=== PATIENT | female | born 1965 | race African-American/Black ===

== ENCOUNTER 2024-01-13 14:31 | Inpatient (IN) | payer OTHER ==
[2024-01-13 15:46] VITALS: BMI 30.9
[2024-01-13] MEDS ORDERED: IBUPROFEN 400 MG TABLET (FP) PO PRN (17:41)
[2024-01-13] MEDS ORDERED: LOPERAMIDE HCL 2 MG CAPSULE PO PRN (17:41)
[2024-01-13] MEDS ORDERED: BENZONATATE 200 MG CAPSULE PO PRN (17:41)
[2024-01-13] MEDS ORDERED: guaiFENesin 600 MG TABLET.ER (FP) PO PRN (17:41)
[2024-01-13] MEDS ORDERED: POLYETHYLENE GLYCOL (HEALTHYLAX) 3350 17 GM PACKET PO PRN (17:41)
[2024-01-13] MEDS ORDERED: P-EPHED 60MG/TRIPROLIDI 2.5MG TABLET PO PRN (17:41)
[2024-01-13] MEDS ORDERED: ACETAMINOPHEN 325 MG TABLET (FP) PO PRN (17:41)
[2024-01-13] MEDS ORDERED: BENZOCAINE/MENTHOL (CHLORASEPTIC ) LOZENGE MM PRN (17:41)
[2024-01-13] MEDS: SULFAMETHOXAZOLE/TRIMETHOPRIM 800MG/160MG D.S. TABLET PO SCH (21:52)
[2024-01-13] MEDS ORDERED: TUBERCULIN PPD 5 TU/0.1ML VIAL ID ONE (21:52)
[2024-01-13] MEDS: TUBERCULIN PPD 5 TU/0.1ML SYRINGE (IN PATIENT USE ONLY) ID ONE (22:02)
[2024-01-13] MEDS: THIAMINE HCL 100 MG TABLET (FP) PO SCH (22:06)
[2024-01-13] MEDS: MELATONIN 5 MG TABLETS PO SCH (22:06)
[2024-01-14] MEDS ORDERED: ALBUTEROL SO4 HFA INHALER IH PRN ×2 (08:13→10:42)
[2024-01-14] MEDS: PRENATAL VITAMINS W/ FOLIC ACID TABLET (FP) PO SCH (11:06)
[2024-01-14] MEDS: BACITRACIN 0.9 GM PACKET TP SCH (11:06)
[2024-01-14 12:09] LABS: EPI CELLS >36 /uL (0-25.1); HYALINE CASTS 2 /uL (0-3.1); PH,URINE 5.5 (5.0-8.0); URINE APPEARANCE TURBID; URINE BACTERIA 1217 /uL (0-1359); URINE BILIRUBIN NEGATIVE (NEGATIVE); URINE COLOR YELLOW; URINE GLUCOSE (UA) NEGATIVE (NEGATIVE); URINE KETONE NEGATIVE (NEGATIVE); URINE LEUK ESTERASE 3+ (NEGATIVE); URINE NITRITE NEGATIVE (NEGATIVE); URINE PROTEIN NEGATIVE (NEGATIVE); URINE RBC 14 /uL (0-23.9); URINE UROBILINOGEN 0.2 mg/dL (0.2-1.0); URINE WBC 1603 /uL (0-25.8)
[2024-01-15 11:45] LABS: BASO % 0.8 % (0-2.0); EOS % 2.5 % (0-4.5); HEMATOCRIT 37.3 % (32.4-45.2); HEMOGLOBIN 11.8 GM/dL (10.7-15.3); LYMPH % 52.7 % (8-40); MCH 26.1 pg (25.7-33.7); MCHC 31.6 g/dl (32.0-36.0); MEAN CELL VOLUME 82.7 fl (80-96); MEAN PLT VOLUME 9.2 fl (7.5-11.1); MONO % 6.7 % (3.8-10.2); NEUT % 37.3 % (42.8-82.8); PLATELET COUNT 350 10^3/uL (134-434); RDW 14.4 % (11.6-15.6); WHITE BLOOD COUNT 4.5 K/mm3 (4.0-10.0)
[2024-01-15 11:52] LABS: POTASSIUM 3.8 mmol/L (3.5-5.1)
[2024-01-15 12:02] LABS: CALCIUM 9.4 mg/dL (8.5-10.1)
[2024-01-15 12:03] LABS: BLOOD UREA NITROGEN 15.6 mg/dL (7-18)
[2024-01-15 12:04] LABS: ALBUMIN 3.3 g/dl (3.4-5.0)
[2024-01-15 12:07] LABS: BILIRUBIN,TOTAL 0.3 mg/dL (0.2-1)
[2024-01-15 12:08] LABS: TOT PROT 7.4 g/dl (6.4-8.2)
[2024-01-15] MEDS: MAG HYDROX/AL HYDROX/SIMETH 30 ML UNIT-DOSE CUP PO PRN (12:51)
[2024-01-22] MEDS: MAGNESIUM HYDROX 2400MG/30ML ORAL SUSPENSION 30 ML CUP PO PRN (22:01)
[2024-01-23] MEDS ORDERED: ARTIFICIAL TEARS OPHTHALMIC DROPS OU PRN (11:20)
[2024-01-23] MEDS: LIDOCAINE 5% TOPICAL PATCH TP SCH (12:10)
[2024-01-23 18:37] LABS: URINE APPEARANCE CLEAR; URINE BILIRUBIN NEGATIVE (NEGATIVE); URINE COLOR YELLOW; URINE GLUCOSE (UA) NEGATIVE (NEGATIVE); URINE KETONE NEGATIVE (NEGATIVE)
[2024-01-23 18:38] LABS: PH,URINE 6.5 (5.0-8.0); URINE LEUK ESTERASE 1+ (NEGATIVE); URINE NITRITE NEGATIVE (NEGATIVE); URINE PROTEIN NEGATIVE (NEGATIVE); URINE UROBILINOGEN 0.2 mg/dL (0.2-1.0)
[2024-01-23] MEDS: LIDOCAINE PATCH REMOVAL MC SCH (21:39)
[2024-01-24 07:31] VITALS: RESP 18
[2024-01-25] MEDS: AMOX TR/POT CLAV 500MG/125MG TABLETS (FP) PO SCH (17:37)
[2024-01-28] MEDS ORDERED: CARBAMIDE PEROXIDE 6.5% OTIC 15 ML BOTTLE AU PRN (10:27)
[2024-02-02] MEDS: IBUPROFEN 600 MG TABLET (FP) PO PRN (18:52)
[2024-02-03 07:00] VITALS: BP 154/80; PULSE 63; TEMP 97
== END 2024-02-03 10:30 | disposition home or self-care (01) | DRG 772 ==
LOC: YASAS 14:31 → Y5N 20:11
PROVIDERS: ADMIT Allergy & Immunology; ATTEND Psychiatry & Neurology Pain Medicine
PROC: HZ42ZZZ Group Counseling for Substance Abuse Treatment, Cognitive-Behavioral (ICD-10-PCS; principal; 2024-01-13)
DX: F16.20 Hallucinogen dependence, uncomplicated (principal); F31.9 Bipolar disorder, unspecified; H04.123 Dry eye syndrome of bilateral lacrimal glands; L91.0 Hypertrophic scar; N39.0 Urinary tract infection, site not specified; B95.1 Streptococcus, group B, as the cause of diseases classified elsewhere; M16.11 Unilateral primary osteoarthritis, right hip; Z62.810 Personal history of physical and sexual abuse in childhood; Z86.73 Personal history of transient ischemic attack (TIA), and cerebral infarction without residual deficits; Z28.310 Unvaccinated for COVID-19; Z28.9 Immunization not carried out for unspecified reason
CPT/HCPCS: 36415; 80053; 80305; 81003; 85025; 86593; 86780; 86803; 87086; 87635; 93005; 93010